=== PATIENT | male | born 1960 | race Caucasian/White ===

== ENCOUNTER 2020-09-13 13:52 | Emergency (ER) | payer OTHER ==
[2020-09-13 15:06] LABS: BASOPHIL 0.2 % (0-2); EOSINOPHIL 0.2 % (0-5); HCT 41.6 % (42.0-52.0); HGB 14.5 g/dl (13.2-18.0); LYMPHOCYTE 12.6 % (15-48); MCH 30.8 pg (25.0-31.0); MCHC 34.9 g/dL (32.0-36.0); MCV 88.3 fL (78.0-100.0); MPV 10.7 fL (6.0-9.5); NEUTROPHIL 79.5 % (41-80); NRBC 0; PLT 130 K/uL (150-400); RBC 4.71 M/uL (4.70-6.00); RDW 11.9 % (11.5-14.0); WBC 5.5 K/uL (4.0-10.5)
[2020-09-13 15:22] LABS: ALBUMIN 3.8 g/dL (3.4-5.0); BILIRUBIN - TOTAL 0.8 mg/dL (0.2-1.0); BUN/CREAT RATIO (CALC) 14.6 RATIO; CREATININE 0.82 mg/dL (0.67-1.17); GLOBULIN (CALCULATION) 3.4 g/dL; POTASSIUM 3.5 mmol/L (3.5-5.1); TOTAL PROTEIN 7.2 g/dL (6.4-8.2)
[2020-09-13 15:26] LABS: FLU B NEGATIVE B (NEGATIVE B)
[2020-09-13 15:30] LABS: PRO-BNP 69 pg/mL (<125)
[2020-09-13 16:13] LABS: BILIRUBIN NEGATIVE (NEGATIVE); BLOOD NEGATIVE Ery/uL (NEGATIVE); CLARITY CLEAR (CLEAR); COLOR YELLOW (YELLOW); GLUCOSE (U) NORMAL (NORMAL); LEUKOCYTES NEGATIVE Leu/uL (NEGATIVE); NITRITE NEGATIVE (NEGATIVE); PROTEIN NEGATIVE (NEGATIVE); UROBILINOGEN 0.2 mg/dL (0.2-1.0); pH 6.5 (5.0-9.0)
[2020-09-13] MEDS ORDERED: METOPROLOL SUC100 MG PO (16:40)
== END 2020-09-13 16:50 | disposition home or self-care (01) ==
LOC: FER 13:52
PROVIDERS: Emergency Medicine
DX: I16.0 Hypertensive urgency (principal); I10 Essential (primary) hypertension; E78.5 Hyperlipidemia, unspecified; Z88.8 Allergy status to other drugs, medicaments and biological substances
CPT/HCPCS: 36415; 71045; 80053; 81003; 83880; 84484; 85025; 87804; 87899; 93005; J0360; J3490